=== PATIENT | male | born 1945 | race Caucasian/White ===

== ENCOUNTER → 2017-06-12 | Day surgery (SDC) | payer OTHER, MEDICARE ==
[~2017-06-12] VITALS: Ht 172.7 cm; Wt 93.0 kg
[~2017-06-12] MED LIST: SIMVASTATIN40 M1 PO
--- NOTE | 2017-06-12 08:37 | Operative Report ---
Operative/Inv Procedure Report Surgery Date: 06/12/17 Name of Procedure: 1. Uvulopalatopharyngoplasty 2. Tonsillectomy Pre-Operative Diagnosis: Tonsillar hypertrophy Obstructive sleep apnea Post-Operative Diagnosis: Same Estimated Blood Loss: derrick Surgeon/Payroll Examiner: Edith Milton MD Anesthesia: general endotracheal tube Specimens: Right Tonsils Left tonsil and uvula Complications: none Condition: Stable on leaving the OR Operative Indication: Heavy snoring at night Stopping breathing waking up in the morning tired daytime somnolence Recurrent tonsillitis Concretions forming within the tonsils with bad breath and bad taste Patient has been treated with recurrent courses of antibiotics with improvement but then recurrence Operative/Procedure Note Note: Patient was brought to the operating room. Placed on the operating table in supine position. First timeout was performed including patient's name, ID number and planned procedure. Then general orotracheal anesthesia was induced. Endotracheal tube was taped in the midline. Patient was very anterior and a large tongue which made intubation difficult. Oral cavity was exposed with oral cavity retractor, endotracheal tube positioned in the midline over the tongue. Soft palate was palpated. There was no submucous cleft. Nasopharynx was visualized with a mirror. The nasopharynx was clear without evidence of adenoid hypertrophy. Tonsils were markedly enlarged with significant exophytic and endophytic component. For this dissection was carried with the pencil bovie set on cautery of 15 and cut 5. Right tonsil was grasped with curved Allis, incision was placed over the anterior superior pole of the mucosa only. Tonsil capsule was identified and dissection was carried from superior to inferior until the entire tonsil was removed. Next the left tonsil was grasped with curved Allis. Incision was placed with the Bovie over the anterior-superior pole through the mucosa only. Tonsillar capsule was identified and dissection carried from the superior to the inferior until the entire tonsil was removed. At the end of the procedure tonsillar fossa was inspected for bleeders. Additional cautery was carried to assure adequate hemostasis. During dissection both tonsils were scarred down onto the tonsillar fossa, there were cryptic concretions within the tonsils. Tonsillectomy revealed significantly the oropharyngeal obstruction. Examination of the oropharynx and hypopharynx revealed that uvula was markedly hypertrophied and edematous obstructing hypopharynx. In addition soft palate had edema which was causing obstruction within the oropharynx. At this point the decision was made to proceed with partial uvulectomy and UPPP. Next uvulopalatopharyngoplasty was performed. Bovie was changed to coag of 5 and cut of 10. Uvula was markedly hypertrophied and descending onto the base of tongue. It was grasped with forceps and two thirds of the uvula was removed with the Bovie. Once Uvulectomy was completed. Right side of the soft palate was addressed and Bovie was used to remove a wedge of soft palate adjacent to the uvula. Similar procedure was carried on the right side. This was done with the Bovie. All mucosal edges were then approximated over the lateral and medial aspect of the palate extending onto the uvula. 4-0 chromic was used for the stitching. Uvula , its mucosal edges were then approximated with 4-0 chromic simple sutures. This led to improvement in the oropharyngeal and hypopharyngeal airway. Surgery was completed. Stomach was suctioned with an OG tube. The patient was reawakened, extubated and taken to the recovery room in good condition. There were no complications. Estimated blood loss was minimal. Findings: Tonsils 3+ obstructing, crypts concretions, all scarred down onto tonsilla fossa Uvula marked hypertrophy with obstruction of the oropharynx and the septum and into the hypopharynx Soft palate low-lying with obstruction of oropharynx Discharge Disposition: PACU Discharge Disposition: PACU
== END ==
LOC: STS 02:31
DX: J35.1 Hypertrophy of tonsils (principal); G47.33 Obstructive sleep apnea (adult) (pediatric); K13.79 Other lesions of oral mucosa; R06.83 Snoring; R19.6 Halitosis; F51.11 Primary hypersomnia; Z87.891 Personal history of nicotine dependence; I10 Essential (primary) hypertension
CPT/HCPCS: C9399; J0131; J0690